=== PATIENT | female | born 1990 | race Caucasian/White ===

== ENCOUNTER 2021-05-02 18:40 | Emergency (ER) | payer OTHER ==
[~2021-05-02 18:40] MED LIST: BENTYL 20MG TAB20 MG PO; PROTONIX40 MG PO; ZOFRAN ODT 4 MG4 MG PO
[2021-05-02 19:45] LABS: HEMOGLOBIN 13.2 gm/dl (12.3-15.3); RED BLOOD COUNT 4.53 M/UL (4.00-5.10); WHITE BLOOD COUNT 4.1 K/UL (4.5-11.0)
[2021-05-02 20:07] LABS: BUN/CREATININE RATIO 19 (0-10)
[2021-05-03] MEDS ORDERED: FLAGYL 250 MG250 MG GT (03:52)
[2021-05-03] MEDS ORDERED: AUGMENTIN250 MG/5 M PO (03:52)
== END 2021-05-03 04:13 | disposition home or self-care (01) ==
LOC: ER1 18:40
PROVIDERS: Emergency Medicine
DX: R10.31 Right lower quadrant pain (principal); Z90.49 Acquired absence of other specified parts of digestive tract
CPT/HCPCS: 80053; 81001; 83690; 85025; 96374; 96375; 99284; J1885; J2405; Q9967